=== PATIENT | female | born 1960 | race Two or more races ===

== ENCOUNTER 2024-08-17 19:54 | Inpatient (IN) | payer MEDICAID, OTHER ==
[~2024-08-17] VITALS: Ht 165.1 cm; Wt 70.0 kg
[2024-08-17 20:27] LABS: Basophils # (auto) 0 10 ^3/uL (0-0.2); Basophils % (auto) 0.8 % (0.0-2.0); Eosinophils # (auto) 0.2 10 ^3/uL (0-0.8); Eosinophils % (auto) 4.3 % (0.0-7.0); Hematocrit 35.2 % (36.0-46.0); Hemoglobin 11.9 g/dL (12.2-16.2); Lymphocytes % (auto) 35.6 % (10.0-50.0); Mean Corpuscular Hemoglobin 29.2 pg (28.0-32.0); Mean Corpuscular Hgb Conc. 33.9 g/dL (32.0-36.0); Mean Corpuscular Volume 86.1 fL (80.0-100.0); Monocytes # (auto) 0.5 10 ^3/uL (0-1.3); Monocytes % (auto) 9.6 % (0.0-12.0); Neutrophils # (auto) 2.8 10 ^3/uL (1.6-8.6); Neutrophils % (auto) 49.7 % (37.0-80.0); Nucleated Red Blood Cells % 0.1 %; Platelet Count (auto) 209 10^3/uL (140-450); Red Blood Cells 4.08 10^6/uL (4.0-5.20); Red Cell Distribution Width 16.3 % (11.8-14.3); White Blood Cell 5.6 10^3/uL (4.4-10.8)
[2024-08-17 20:42] LABS: Alanine Aminotransferase 10 U/L (7-40); Albumin 4.7 g/dL (3.2-4.8); Alkaline Phosphatase 102 U/L (46-116); Anion Gap 8 (5-15); Aspartate Aminotransferase 18 U/L (<34); BUN/Creatinine Ratio 17.1 (10.0-20.0); Bilirubin, Total 0.5 mg/dL (0.2-1.0); Blood Urea Nitrogen 19 mg/dL (9-23); Carbon Dioxide 28 mmol/L (20-31); Chloride 105 mmol/L (98-107); Potassium 4.7 mmol/L (3.5-5.1); Sodium 141 mmol/L (136-145); Total Protein 7.8 g/dL (5.7-8.2)
[2024-08-17 20:45] LABS: Calcium 10.5 mg/dL (8.7-10.4); Glucose 138 mg/dL (74-106)
--- NOTE | 2024-08-17 21:08 | DVH ---
CHEST RADIOGRAPH Indication: Chest pain Technique: Single frontal view of the chest was obtained Comparison: None FINDINGS: Lines and Tubes: None Lungs: No focal consolidation. Pleura: No effusion. No pneumothorax. Cardiomediastinal contours: Unremarkable Bones: No acute osseous abnormality. IMPRESSION: 1. No acute cardiopulmonary disease.
[2024-08-17 23:25] LABS: Urine Bacteria FEW /hpf (None Seen); Urine Blood Negative /uL (Negative); Urine Clarity Clear (Clear); Urine Color Colorless (Yellow); Urine Protein, UAD TRACE (Negative); Urine Specific Gravity 1.004 (1.001-1.035); Urine Squamous Epithelial Cell None Seen /hpf (<5); Urine Urobilinogen Normal (Negative); Urine WBC 9 /HPF (0-5); Urine pH 6.5 (5.0-9.0)
--- NOTE | 2024-08-17 23:41 | ED.PDOC ---
HPI Comments This patient is a 64-year-old female who arrives the ED today from urgent care due to concerns of palpitations that were noted in the neck due to blood pressure concerns earlier. Patient's blood pressure had spiked and she went to urgent care for assistance. Due to the palpitation response with the patient was experiencing, they advised her to ED for evaluation. Patient was hypertensive on arrival. Blood pressure 154/89 at arrival. Chief Complaint: High Blood Pressure Time Seen by MD: 19:59 Reviewed Notes: Nurses Notes Allergies: Coded Allergies: No Known Drug Allergy (Verified Allergy, Unknown, 08/17/24) Information Source: Patient Mode of Arrival: Ambulatory Severity: Moderate Timing: Hours Duration: Since onset Prehospital treatment: None Location: Substernal Radiation: Other (Left-sided neck) Quality: Sharp, Tightness Onset: At Rest Cardiac Risk Factors: HTN Associated Signs and Symptoms: Palpitations Past Medical History PAST MEDICAL HISTORY: HTN Surgical History: Denies all surgeries HIDE DROPPER History: No Pertinent HIDE DROPPER History Family History Family History: Reviewed,noncontributory to illness, No family hx of Cancer, No family hx of DM, No family hx of Heart cholo, No family hx of HTN, No family hx ofKidney cholo, No family hx of Liver cholo, No family hx of Lung cholo, No family hx of Stroke Social History Smoker: Non-Smoker Alcohol: Denies ETOH Use Drugs: Denies Drug Use Lives In: Home Constitutional: denies: chills, diaphoresis, fatigue, fever, malaise, sweats, weakness, others EENTM: denies: blurred vision, double vision, ear bleeding, ear discharge, ear drainage, ear pain, ear ringing, eye pain, eye redness, hearing loss, mouth pain, mouth swelling, nasal discharge, nose bleeding, nose congestion, nose pain, photophobia, tearing, throat pain, throat swelling, voice changes, others Respiratory: denies: cough, hemoptysis, orthopnea, SOB at rest, shortness of breath, SOB with excertion, stridor, wheezing, others Cardiovascular: reports: palpitations (Appreciated in the left-sided neck); denies: chest pain, dizzy spells, diaphoresis, Dyspnea on exertion, edema, irreg ular heart beat, left arm pain, lightheadedness, PND, syncope, others Gastrointestinal: denies: abdomen distended, abdominal pain, blood streaked bowels, constipated, diarrhea, dysphagia, difficulty swallowing, hematemesis, melena, nausea, poor appetite, poor fluid intake, rectal bleeding, rectal pain, vomiting, others Genitourinary: denies: abnormal vagina bleeding, burning, dyspareunia, dysuria, flank pain, frequency, hematuria, incontinence, pain, , vagina discharge, urgency, others Neurological: denies: dizziness, fainting, headache, left sided numbness, left sided weakness, numbness, paresthesia, pre-existing deficit, right sided numbness, right sided weakness, seizure, speech problems, tingling, tremors, weakness, others Musculoskeletal: denies: back pain, gout, joint pain, joint swelling, muscle pain, muscle stiffness, neck pain, others Integumetry: denies: bruises, change in color, change in hair/nails, dryness, laceration, lesions, lumps, rash, wounds, others Allergic/Immunocompromised: denies: Difficulty Healing, Frequent Infections, Hives, Itching, others Hematologic/Lymphatic: denies: anemia, blood clots, easy bleeding, easy bruising, swollen glands, others Endocrine: denies: excessive hunger, excessive sweating, excessive thirst, excessive urination, flushing, intolerance to cold, intolerance to heat, unexplained weight gain, unexplained weight loss, others Psychiatric: denies: anxiety, bipolar disorder, depression, hopeless, panic disorder, schizophrenia, sleepless, suicidal, others Physical Exam General Appearance: No Apparent Distress (At time of evaluation, patient states her palpitation sensation in her neck had diminished markedly.), Normal HEENT: Normal ENT Inspection, Pharynx Normal, TMs Normal Neck: Other (No definitive bruit noted on bilateral carotid evaluation.) Respiratory: Chest Non-Tender, Lungs Clear, No Accessory Muscle Use, No Respiratory Distress, Normal Breath Sounds Cardiovascular: No Edema, No JVD, No Murmur, No Gallop, Normal Peripheral Pulses, Regular Rate/Rhythm Breast Exam: Deferred Gastrointestinal: No Organomegaly, Non Tender, No Pulsatile Mass, Normal Bowel Sounds, Soft Genitalia: Deferred Pelvic: Deferred Rectal: Deferred Extremities: No calf tenderness, Normal capillary refill, Normal inspection, Normal range of motion, Non-tender, No pedal edema Neurologic: Alert, No Motor Deficits, Normal Affect, Normal Mood, No Sensory Deficits Cerebellar Function: Normal Reflexes: Normal Skin: Dry, Normal Color, Warm Lymphatic: No Adenopathy Was a procedure done? Was a procedure done?: No CP Differential Dx Differential Diagnosis: A-fib, A-Flutter, Anxiety / Panic Attack, Atrial Dysrhythmia, AV Block 1st Degree, AV Block 2nd Degree, TX Differential Diagnosis: HTN Essential, Medical NonCompliance X-Ray, Labs, Meds, VS Vital Signs Date Time Temp Pulse Resp B/P (MAP) Pulse Ox O2 Delivery O2 Flow Rate FiO2 08/17/24 22:38 98.0 64 17 188/63 (104) 98 98.0 08/17/24 21:03 61 08/17/24 20:24 98.5 67 20 154/89 (110) 98 98.5 Lab Test 08/17/24 21:23 08/17/24 21:03 08/17/24 20:10 Range/Units Troponin I High Sensitivity 4 5 </=34 ng/L Urine Color Colorless Yellow Urine Clarity Clear Clear Urine pH 6.5 5.0-9.0 Urine Specific [place] 1.004 1.001-1.035 Urine Protein Trace H Negative Urine Ketones Negative Negative Urine Blood Negative Negative /uL Urine Nitrite Negative Negative Urine Bilirubin Negative Negative Urine Urobilinogen Normal Negative mg/dL Urine Leukocyte Esterase Trace Negative /uL Urine RBC 1 0 - 4 /hpf Urine Microscopic WBC 9 H 0-5 /HPF Urine Squamous Epithelial Cells None seen <5 /hpf Urine Bacteria Few H None Seen /hpf Urine Glucose Normal Normal mg/dL White Blood Count 5.6 4.4-10.8 10^3/uL Red Blood Count 4.08 4.0-5.20 10^6/uL Hemoglobin 11.9 L 12.2-16.2 g/dL Hematocrit 35.2 L 36.0-46.0 % Mean Corpuscular Volume 86.1 80.0-100.0 fL Mean Corpuscular Hemoglobin 29.2 28.0-32.0 pg Mean Corpuscular Hemoglobin Concent 33.9 32.0-36.0 g/dL Red Cell Distribution Width 16.3 H 11.8-14.3 % Platelet Count 209 140-450 10^3/uL Mean Platelet Volume 9.0 6.9-10.8 fL Neutrophils (%) (Auto) 49.7 37.0-80.0 % Lymphocytes (%) (Auto) 35.6 10.0-50.0 % Monocytes (%) (Auto) 9.6 0.0-12.0 % Eosinophils (%) (Auto) 4.3 0.0-7.0 % Basophils (%) (Auto) 0.8 0.0-2.0 % Neutrophils # (Auto) 2.8 1.6-8.6 10 ^3/uL Lymphocytes # (Auto) 2.0 0.4-5.4 10 ^3/uL Monocytes # (Auto) 0.5 0-1.3 10 ^3/uL Eosinophils # (Auto) 0.2 0-0.8 10 ^3/uL Basophils # (Auto) 0 0-0.2 10 ^3/uL Nucleated Red Blood Cells 0.1 % D-Dimer, Quantitative 0.20 0.0-0.49 mg/L FEU Sodium Level 141 136-145 mmol/L Potassium Level 4.7 3.5-5.1 mmol/L Chloride Level 105 98-107 mmol/L Carbon Dioxide Level 28 20-31 mmol/L Anion Gap 8 5-15 Blood Urea Nitrogen 19 9-23 mg/dL Creatinine 1.11 H 0.550-1.02 mg/dL Glomerular Filtration Rate Calc 55 >90 mL/min BUN/Creatinine Ratio 17.1 10.0-20.0 Serum Glucose 138 H 74-106 mg/dL Calcium Level 10.5 H 8.7-10.4 mg/dL Total Bilirubin 0.5 0.2-1.0 mg/dL Aspartate Amino Transferase (AST) 18 <34 U/L Alanine Aminotransferase (ALT) 10 7-40 U/L Alkaline Phosphatase 102 46-116 U/L B-Type Natriuretic Peptide 89.81 0-100 pg/mL Total Protein 7.8 5.7-8.2 g/dL Albumin 4.7 3.2-4.8 g/dL X-Ray, Labs, Meds, VS Comment All studies performed the ED were evaluated by me personally. Serum studies were unremarkable for any systemic concerns including unremarkable cardiac markers. Urinalysis confirmed a mild urinary tract infection, but EKG revealed a sinus rhythm with a rate of 64. Left bundle-branch block was appreciated with a baseline wander in leads V1 and V3. PA interval 154 and QT interval of 419. Patient states she has been has been diagnosed with a left bundle-branch block concerns before. Patient will be admitted for cardiac evaluation tomorrow as well as management of her mild urinary tract infection and blood pressure concerns. Time of 1ST Reevaluation: 23:39 Reevaluation 1ST: Improved Consultation: PCP, Cardiology Patient Education/Counseling: Diagnosis, Treatment Family Education/Counseling: Diagnosis, Treatment SEPSIS Sepsis Screen Date sepsis recognized/suspect: Aug 17, 2024 Time Sepsis recognized/suspect: 1999 Recent Procedure: No On Antibiotic Therapy: No Respiratory Rate >20: No Heart Rate >90: No Temp<36 C (96.8 F) or >38.3 C: No SBP <90 or MAP <65 mmHG: No New Acute Mental Status Change: No Is the patient on CPAP, BIPAP,: No Physician Orders Electrocardigram (08/17/24 19:56) Electrocardigram (08/17/24 20:56) Electrocardigram (08/17/24 22:56) Chest Portable (08/17/24 20:16) Heplock Iv (08/17/24 20:16) Vital Signs Date Time Temp Pulse Resp B/P (MAP) Pulse Ox O2 Delivery O2 Flow Rate FiO2 08/17/24 22:38 98.0 64 17 188/63 (104) 98 98.0 08/17/24 21:03 61 08/17/24 20:24 98.5 67 20 154/89 (110) 98 98.5 Laboratory Tests Test 08/17/24 20:10 White Blood Count 5.6 10^3/uL (4.4-10.8) Departure 1 Departure Time of Disposition: 23:40 Impression: Primary Impression: Acute coronary syndromes Additional Impressions: Left bundle branch block Urinary tract infection Disposition: ADMITTED INPATIENT Condition: Stable Discharged With: Self Critical Care Note Critical Care Time?: No Stability Stability form required: No Heart Score Heart Score: Heart Score Response (Comments) Value History Slightly Suspicious 0 EKG Repolarization Disturb 1 Age >65 2 Risk Factors 1 or 2 risk factors 1 Troponin Normal limit 0 Total 4 ALAYNA MCKEON PAC Aug 17, 2024 23:41
[2024-08-18] MEDS ORDERED: ONDANSETRON HCL 4 MG/2 ML VIAL IV PRN (00:15)
[2024-08-18] MEDS ORDERED: ACETAMINOPHEN 325 MG TAB PO PRN (00:15)
[2024-08-18] MEDS ORDERED: DEXTROSE (50%) 50ML SYRG IV PRN (00:15)
[2024-08-18] MEDS ORDERED: DOCUSATE SOD 100 MG CAP PO PRN (00:15)
--- NOTE | 2024-08-18 01:23 | ECG ---
[facility] Test Date: 2024-08-17 Test Time: 21:03:50 Pat Name: LUIS F JONES Department: ED Room: 0293T Gender: F Manager Of Data: JEANNETTE : 1960 Requested By: LUDA FRIEDMAN Order Number: [id number] Reading MD: Robbie Murrieta Measurements Intervals [place] Rate: 61 P: 62 SC: 141 QRS: -25 QRSD: 141 T: 169 QT: 418 QTc: 421 Interpretive Statements Sinus rhythm Left bundle branch block Baseline wander in lead(s) V2 Electronically Signed On 08-18-2024 20:14:10 PDT by Robbie Murrieta Please click the below link to view image of tracing.
--- NOTE | 2024-08-18 02:17 | DVHHP2 ---
History of Present Illness Reason for Visit: Hypertensive emergency History of Present Illness The patient is a 64-year-old female with past medical history of hypertension and diabetes mellitus who presented to [facility] ED with complaint of elevated blood pressure. Patient reports that she went to the urgent care due to palpitations concerns and was found to have elevated blood pressure. Patient was advised to come to the ED for evaluation. Patient was seen and evaluated in the ED, laboratory data shows WBC 5.6, platelets 209, sodium 141, potassium 4.7, BUN 19, creatinine 1.11, glucose 138, calcium 10.5, BNP 89.81, troponin 4, blood pressure 188/63 trending down to 164/63, heart rate 64, temperature 98.0 F, O2 saturation 98% on room air. Chest x-ray show no acute cardiopulmonary disease. Please see medication orders section in the computer. On my assessment, patient denied chest pain, no headache, no dizziness, no shortness of breaths, no nausea, no vomiting, no fever, no chills. Patient was admitted for further evaluation and medical management. Past Medical History HTN, DM Past Surgical History Denies all surgeries Family History Reviewed, noncontributory to the management of this case. Past Social History The patient lives at home, denies smoking, alcohol or illicit drugs abuse. Review of Systems Constitutional: Yes: Weakness; No: Fever, Chills, Sweats, Malaise, Other Eyes: No: Pain, Vision change, Conjunctivae inflammation, Eyelid inflammation, Other, Redness ENT: No: Ear pain, Ear discharge, Nose pain, Nose discharge, Nose congestion, Mouth pain, Mouth swelling, Throat pain, Throat swelling, Other Respiratory: No: Cough, Dry, Shortness of breath, SOB with excertion, Wheezing, Hemoptysis, Pleuritic Pain, Sputum, Wheezing, Other Cardiovascular: Palpitations, Other (Hypertension); No: Chest Pain, Orthopnea, Paroxysmal Noc. Dyspnea, Edema, Lt Headedness Gastrointestinal: No: Nausea, Vomiting, Abdominal Pain, Diarrhea, Constipation, Melena, Hematochezia, Other Genitourinary: No Dysuria, No Frequency, No Incontinence, No Hematuria, No Retention, No Other Musculoskeletal: No: other, neck pain, shoulder pain, arm pain, back pain, hand pain, leg pain, foot pain Skin: No: Rash, Lesions, Jaundice, Bruising, Other Neurological: No: Weakness, Numbness, Incoordination, Change in speech, Confusion, Seizures, Other Allergies: Coded Allergies: No Known Drug Allergy (Verified Allergy, Unknown, 08/17/24) Medications Current Medications Medications Dose Ordered Sig/Jackie Route Start Time Stop Time Status Last Admin Dose Admin Aspirin 81 mg DAILY PO 08/18/24 10:00 Atorvastatin Calcium 40 mg HS PO 08/18/24 22:00 Metoprolol Tartrate 25 mg BID PO 08/18/24 10:00 Hydralazine HCl 10 mg Q6HP PRN IV 08/18/24 00:15 Diagnostic Test (Pha) 1 strip ACHS 08/18/24 07:00 Insulin Human Regular HS SC 08/18/24 22:00 Insulin Human Regular AC SC 08/18/24 07:00 Dextrose 50 ml UD PRN IV 08/18/24 00:15 Sodium Chloride 10 ml Q8HR IV 08/18/24 06:00 Acetaminophen/ Hydrocodone Bitart 1 tab Q4HP PRN PO 08/18/24 00:15 Ondansetron HCl 4 mg Q4HP PRN IV 08/18/24 00:15 Docusate Sodium 100 mg BIDPRN PRN PO 08/18/24 00:15 Acetaminophen 650 mg Q6HP PRN PO 08/18/24 00:15 Amlodipine Besylate 5 mg DAILY PO 08/18/24 10:00 UNV Exam Vital Signs Vital Signs Date Time Temp Pulse Resp B/P (MAP) Pulse Ox O2 Delivery O2 Flow Rate FiO2 08/17/24 22:38 98.0 64 17 188/63 (104) 98 98.0 General Appearance: Alert, Oriented X3, Cooperative, No acute distress HEENT: Atraumatic, PERRLA, EOMI, Mucous membr. moist/pink Respiratory: Clear to auscultation, Normal air movement Cardiovascular: Regular rate, Normal S1, Normal S2, No murmurs Abdominal: Normal bowel sounds, Soft, No tenderness, No hepatospenomegaly, No masses Extremities: No clubbing, No cyanosis, No edema, Normal pulses, No tenderness /swelling Skin: No rashes, No breakdown, No significant lesion Neuro: Normal speech, Normal tone, Sensation intact, Cranial nerves 3-12 NL, Reflexes 2+, Other (Generalized weakness) Psych/Mental Status: Mental status NL, Mood NL Labs/Xrays Labs Test 08/17/24 21:23 08/17/24 21:03 08/17/24 20:10 Range/Units Troponin I High Sensitivity 4 </=34 ng/L Urine Color Colorless Yellow Urine Clarity Clear Clear Urine pH 6.5 5.0-9.0 Urine Specific [place] 1.004 1.001-1.035 Urine Protein Trace H Negative Urine Ketones Negative Negative Urine Blood Negative Negative /uL Urine Nitrite Negative Negative Urine Bilirubin Negative Negative Urine Urobilinogen Normal Negative mg/dL Urine Leukocyte Esterase Trace Negative /uL Urine RBC 1 0 - 4 /hpf Urine Microscopic WBC 9 H 0-5 /HPF Urine Squamous Epithelial Cells None seen <5 /hpf Urine Bacteria Few H None Seen /hpf Urine Glucose Normal Normal mg/dL White Blood Count 5.6 4.4-10.8 10^3/uL Red Blood Count 4.08 4.0-5.20 10^6/uL Hemoglobin 11.9 L 12.2-16.2 g/dL Hematocrit 35.2 L 36.0-46.0 % Mean Corpuscular Volume 86.1 80.0-100.0 fL Mean Corpuscular Hemoglobin 29.2 28.0-32.0 pg Mean Corpuscular Hemoglobin Concent 33.9 32.0-36.0 g/dL Red Cell Distribution Width 16.3 H 11.8-14.3 % Platelet Count 209 140-450 10^3/uL Mean Platelet Volume 9.0 6.9-10.8 fL Neutrophils (%) (Auto) 49.7 37.0-80.0 % Lymphocytes (%) (Auto) 35.6 10.0-50.0 % Monocytes (%) (Auto) 9.6 0.0-12.0 % Eosinophils (%) (Auto) 4.3 0.0-7.0 % Basophils (%) (Auto) 0.8 0.0-2.0 % Neutrophils # (Auto) 2.8 1.6-8.6 10 ^3/uL Lymphocytes # (Auto) 2.0 0.4-5.4 10 ^3/uL Monocytes # (Auto) 0.5 0-1.3 10 ^3/uL Eosinophils # (Auto) 0.2 0-0.8 10 ^3/uL Basophils # (Auto) 0 0-0.2 10 ^3/uL Nucleated Red Blood Cells 0.1 % D-Dimer, Quantitative 0.20 0.0-0.49 mg/L FEU Sodium Level 141 136-145 mmol/L Potassium Level 4.7 3.5-5.1 mmol/L Chloride Level 105 98-107 mmol/L Carbon Dioxide Level 28 20-31 mmol/L Anion Gap 8 5-15 Blood Urea Nitrogen 19 9-23 mg/dL Creatinine 1.11 H 0.550-1.02 mg/dL Glomerular Filtration Rate Calc 55 >90 mL/min BUN/Creatinine Ratio 17.1 10.0-20.0 Serum Glucose 138 H 74-106 mg/dL Calcium Level 10.5 H 8.7-10.4 mg/dL Total Bilirubin 0.5 0.2-1.0 mg/dL Aspartate Amino Transferase (AST) 18 <34 U/L Alanine Aminotransferase (ALT) 10 7-40 U/L Alkaline Phosphatase 102 46-116 U/L B-Type Natriuretic Peptide 89.81 0-100 pg/mL Total Protein 7.8 5.7-8.2 g/dL Albumin 4.7 3.2-4.8 g/dL PATIENT: LUIS F JONES ACCT: [id number] UNIT: [id number] : 1960 LOC: ER ROOM / BED: / AGE / SEX: 64 / F ADM STATUS: REG ER SERVICE 15 ORDERING PHYSICIAN: ALAYNA MCKEON PAC PROCEDURE(s): CXRP - CHEST PORTABLE REASON: Chest pain ORDER NUMBER(s): [id number], ACCESSION NUMBER(s): [id number] CHEST RADIOGRAPH Indication: Chest pain Technique: Single frontal view of the chest was obtained Comparison: None FINDINGS: Lines and Tubes: None Lungs: No focal consolidation. Pleura: No effusion. No pneumothorax. Cardiomediastinal contours: Unremarkable Bones: No acute osseous abnormality. IMPRESSION: 1. No acute cardiopulmonary disease. Assessment/Plan Assessment/Plan Acute coronary syndromes Left bundle branch block Hypertensive urgency Generalized weakness Plan 1. Admit to telemetry unit 2. Breathing treatment 3. Pain control management 4. Management of fluids and electrolytes 5. Consultation for hospitalist 6. Diagnostic tests chest x-ray 7. DVT prophylaxis--on SCDs 8. Repeat labs CBC, CMP in a.m. 9. Continue with current medical management 10. Treatment plan discussed with patient and RN. Patient verbalized understa nding. Plan discussed with: Patient, Other (RN) My Orders Orders - AMBER RIOS DNP Procedure Category Date Status Time Complete Blood Count LAB 08/18/24 Logged 04:00 Comprehensive LAB 08/18/24 Logged Metabolic Panel 04:00 Aspirin Tablet PHA 08/18/24 In Process 10:00 Atorvastatin (Lipitor) PHA 08/18/24 In Process 22:00 Metoprolol Tartrate PHA 08/18/24 In Process Tablet (Lopressor Ta 10:00 Hydralazine Injection PHA 08/18/24 In Process (Apresoline Inject 00:15 Consistent DIET 08/18/24 Transmitted Carb(Ccho)Diabetes Breakfast Glucose Blood PHA 08/18/24 In Process (Accu-Chek Comfort 07:00 Insulin R (Human) PHA 08/18/24 In Process (Insulin R) 22:00 Insulin R (Human) PHA 08/18/24 In Process (Insulin R) 07:00 Dextrose 50% Syringe PHA 08/18/24 In Process 00:15 Allergies ADRIANNE 08/18/24 In Process 00:06 Code Status CODE 08/18/24 Transmitted 00:06 Sodium Chloride Lock PHA 08/18/24 In Process (Saline Lock Ns) 06:00 Oxygen Per Hour RT 08/18/24 Transmitted 00:06 Hydrocodone-Acet PHA 08/18/24 In Process 5/325mg Tab ([place] 00:15 Ondansetron Hcl PHA 08/18/24 In Process (Zofran) 00:15 Docusate Sodium PHA 08/18/24 In Process Capsule (Colace 00:15 Complete Blood Count LAB 08/19/24 Verified 04:00 Comprehensive LAB 08/19/24 Verified Metabolic Panel 04:00 Condition: Serious ADRIANNE 08/18/24 In Process 00:06 Acetaminophen Tablet PHA 08/18/24 In Process (Tylenol Tablet) 00:15 Bedrest With Bathroom ADRIANNE 08/18/24 In Process Privileg 00:06 Sequential ADRIANNE 08/18/24 In Process Compression Device Amlodipine Tablet PHA 08/18/24 Logged (Norvasc Tablet) 02:15 Amlodipine Tablet PHA 08/18/24 Logged (Norvasc Tablet) 10:00 Admit ADMIT 08/18/24 Verified 02:16 Nitroglycerin PHA 08/18/24 Verified Sublingual (Ntrostat 02:30 Morphine Sulfate [facility] 08/18/24 Verified Injection 02:30 Stat Ekg For Chest [facility] 08/18/24 Verified Pain 02:16 Notify Md Of Changes [facility] 08/18/24 Verified From Base 02:16 Manufacturing Laborer For [facility] 08/18/24 Verified 24 Hours 02:16 Emergency Dysrhythmia [facility] 08/18/24 Verified Protocol 02:16 Rhythm Strips Once [facility] 08/18/24 Verified Every Shift 02:16 Oxygen By Nasal 08/18/24 Verified Cannula 02:16 Problem List: (1) Acute coronary syndromes (2) Left bundle branch block (3) Hypertensive urgency (4) Generalized weakness Date of Service: Aug 18, 2024 Billing Provider: AMBER RIOS DNP Common Visit Codes: [id number] INP/OBS CARE (HIGH) AMBER RIOS DNP Aug 18, 2024 02:17
[2024-08-18] MEDS: cloNIDine HCL 0.1 MG TAB PO ONE (02:28)
[2024-08-18] MEDS: cefTRIAXone 1GM/50ML D5W 50 ML IV ONE (02:29)
[2024-08-18] MEDS ORDERED: NITROGLYCERIN 0.4 MG SL TAB SL PRN (02:30)
[2024-08-18] MEDS ORDERED: MORPHINE SULFATE INJ 2 MG/ml SYRG IV PRN (02:30)
[2024-08-18 02:35] VITALS: O2SAT 98
[2024-08-18] MEDS: amLODIPine BESYLATE 5 MG TAB PO ONE (03:04)
[2024-08-18 05:48] LABS: Basophils # (auto) 0 10 ^3/uL (0-0.2); Basophils % (auto) 0.7 % (0.0-2.0); Eosinophils # (auto) 0.2 10 ^3/uL (0-0.8); Eosinophils % (auto) 4.4 % (0.0-7.0); Hematocrit 31.9 % (36.0-46.0); Hemoglobin 11.1 g/dL (12.2-16.2); Lymphocytes # (auto) 1.7 10 ^3/uL (0.4-5.4); Lymphocytes % (auto) 37.8 % (10.0-50.0); Mean Corpuscular Hemoglobin 29.9 pg (28.0-32.0); Mean Corpuscular Hgb Conc. 34.6 g/dL (32.0-36.0); Mean Corpuscular Volume 86.3 fL (80.0-100.0); Monocytes # (auto) 0.4 10 ^3/uL (0-1.3); Monocytes % (auto) 9.7 % (0.0-12.0); Neutrophils # (auto) 2.2 10 ^3/uL (1.6-8.6); Neutrophils % (auto) 47.4 % (37.0-80.0); Nucleated Red Blood Cells % 0.1 %; Platelet Count (auto) 173 10^3/uL (140-450); Red Cell Distribution Width 15.9 % (11.8-14.3); White Blood Cell 4.6 10^3/uL (4.4-10.8)
[2024-08-18] MEDS: SODIUM CHLOR 0.9% PF (SALINE LOCK) 10ML VIAL/SYR IV SCH (06:02)
[2024-08-18 06:05] LABS: Alkaline Phosphatase 87 U/L (46-116); Anion Gap 7 (5-15); Aspartate Aminotransferase 14 U/L (<34); BUN/Creatinine Ratio 19.3 (10.0-20.0); Bilirubin, Total 0.4 mg/dL (0.2-1.0); Blood Urea Nitrogen 17 mg/dL (9-23); Calcium 9.6 mg/dL (8.7-10.4); Carbon Dioxide 26 mmol/L (20-31); Potassium 4.3 mmol/L (3.5-5.1); Sodium 141 mmol/L (136-145); Total Protein 6.7 g/dL (5.7-8.2)
[2024-08-18 06:09] LABS: Alanine Aminotransferase < 9 U/L (7-40); Chloride 108 mmol/L (98-107); Glucose 146 mg/dL (74-106)
[2024-08-18] MEDS: InsuLIN REG 1unit/0.01ml Soln (100units/ml) SC SCH ×2 (07:00→21:56)
[2024-08-18] MEDS: ACCU-CHEK COMFORT CURVE STRIP VI SCH (07:04)
[2024-08-18 08:24] VITALS: PULSE 52; RESP 14; O2SAT 98
[2024-08-18] MEDS: METOPROLOL TARTRATE 25 MG TAB PO SCH ×2 (10:14→22:06)
[2024-08-18] MEDS: ASPirin 81 mg TAB PO SCH (10:14)
--- NOTE | 2024-08-18 11:06 | ECG ---
[facility] Test Date: 2024-08-17 Test Time: 20:04:45 Pat Name: LUIS F JONES Department: ER Room: 0293T Gender: F Hand Paint Mixer: JAZMYNE : 1960 Requested By: LUDA FRIEDMAN Order Number: [id number] Reading MD: Robbie Murrieta Measurements Intervals [place] Rate: 64 P: 50 MD: 154 QRS: -15 QRSD: 132 T: 169 QT: 419 QTc: 433 Interpretive Statements Sinus rhythm Left bundle branch block Baseline wander in lead(s) V1,V3 Electronically Signed On 08-18-2024 20:13:56 PDT by Robbie Murrieta Please click the below link to view image of tracing.
--- NOTE | 2024-08-18 14:34 | DVHINCON2 ---
Date Seen: Aug 18, 2024 Referring Physician Nikolay Reason for Consultation LBBB, Hypertensive urgency History of Present Illness 64-year-old female with PMH for HTN, diabetes, takotsubo cardiomyopathy 2022 EF 35%, presents to the hospital with elevated blood pressure. Patient states she is feeling pressure around her neck pounding heartbeat and found her blood pressure be significantly elevated in the 190 systolic. Patient presented to the urgent care then she was referred to come to the ED. Upon presentation patient noted to have elevated blood pressure 1 80s/63. Troponin negative. Denies chest pain, shortness of breath. EKG done review shows sinus rhythm at 6 1 beats per minute with LBBB. Cardiology consulted. Past Medical History HTN HLD Takotsubo cardiomyopathy EF 35% Diabetes Past Surgical History Coronary angiogram negative for obstructive CAD 2022 Family History Denies pertinent family cardiac history Social History Denies alcohol, tobacco, or illicit drug use Allergies: Coded Allergies: No Known Drug Allergy (Verified Allergy, Unknown, 08/17/24) Current Medications Current Medications Medications (Trade) Dose Ordered Sig/Jackie Route PRN Reason Start Time Stop Time Status Last Admin Aspirin 81 mg DAILY PO 08/18/24 10:00 08/18/24 10:14 Atorvastatin Calcium (Lipitor) 40 mg HS PO 08/18/24 22:00 Metoprolol Tartrate (Lopressor Tablet) 25 mg BID PO 08/18/24 10:00 08/18/24 10:14 Hydralazine HCl (Apresoline Injection) 10 mg Q6HP PRN IV SBP>150 08/18/24 00:15 Diagnostic Test (Pha) (Accu-Chek Comfort Curve T) 1 strip ACHS 08/18/24 07:00 08/18/24 11:28 Insulin Human Regular (InsuLIN R) HS SC 08/18/24 22:00 Insulin Human Regular (InsuLIN R) AC SC 08/18/24 07:00 08/18/24 11:28 Dextrose 50 ml UD PRN IV Blood Sugar LESS THAN 60 08/18/24 00:15 Sodium Chloride (Saline Lock Ns) 10 ml Q8HR IV 08/18/24 06:00 08/18/24 14:01 Acetaminophen/ Hydrocodone Bitart ([place] 5/325MG Tab) 1 tab Q4HP PRN PO MODERATE PAIN (4-6 PAIN SCALE) 08/18/24 00:15 Ondansetron HCl (Zofran) 4 mg Q4HP PRN IV NAUSEA / VOMITING 08/18/24 00:15 Docusate Sodium (Colace Capsule) 100 mg BIDPRN PRN PO FOR CONSTIPATION 08/18/24 00:15 Acetaminophen (Tylenol Tablet) 650 mg Q6HP PRN PO PAIN SCALE 1-3 OR TEMP>100.4 08/18/24 00:15 Amlodipine Besylate (Norvasc Tablet) 5 mg DAILY PO 08/19/24 10:00 Nitroglycerin (Ntrostat Sublingual) 0.4 mg Q5MINP PRN SL FOR CHEST PAIN 08/18/24 02:30 Morphine Sulfate 2 mg Q30M PRN IV FOR CHEST PAIN 08/18/24 02:30 Review of Systems Constitutional: No: Fever, Chills, Sweats, Weakness, Malaise, Other Eyes: No: Pain, Vision change, Conjunctivae inflammation, Eyelid inflammation, Other, Redness ENT: No: Ear pain, Ear discharge, Nose pain, Nose discharge, Nose congestion, Mouth pain, Mouth swelling, Throat pain, Throat swelling, Other Respiratory: No: Cough, Dry, Shortness of breath, SOB with exertion, Wheezing, Hemoptysis, Pleuritic Pain, Sputum, Wheezing, Other Cardiovascular: ; No: Chest Pain Palpitations, Orthopnea, Paroxysmal Noc. Dyspnea, Edema, Lt Headedness, Other Gastrointestinal: No: Nausea, Vomiting, Abdominal Pain, Diarrhea, Constipation, Melena, Hematochezia, Other Genitourinary: No Dysuria, No Frequency, No Incontinence, No Hematuria, No Retention, No Other Musculoskeletal: neck pain; No: other, shoulder pain, arm pain, back pain, hand pain, leg pain, foot pain Skin: No: Rash, Lesions, Jaundice, Bruising, Other Neurological: Other (Dizziness, headache.); No: Weakness, Numbness, Incoordination, Change in speech, Confusion, Seizures Vital Signs Vital Signs Date Time Temp Pulse Resp B/P (MAP) Pulse Ox O2 Delivery O2 Flow Rate FiO2 08/18/24 12:01 50 10 128/45 (72) 94 08/18/24 08:24 Room Air* 0 21 08/18/24 08:23 97.5 97.5 Physical Exam General appearance: Patient is well-developed, well-nourished, in no acute distress. HEENT: Exam shows: Normocephalic, atraumatic, PERRLA, EOMI Neck: Supple, no bruits Chest: Equal chest excursion bilaterally. Breath sounds normal-no rales or wheezes. Heart: Rhythm: Regular rate; bradycardia; no murmur or gallop Abdomen: Exam shows: Soft, nontender, nondistended Musculoskeletal: No clubbing, no cyanosis, no lower extremity edema Dermatology: Skin warm, moist. Neurological: Exam shows: Alert and oriented x4, normal speech Available prior records, labs, EKG, rhythm strips reviewed and interpreted Labs/Diagnostic Data Labs Test 08/18/24 11:24 08/18/24 05:05 08/17/24 21:23 08/17/24 21:03 Range/Units POC Glucose 187 H 70-106 mg/dl White Blood Count 4.6 4.4-10.8 10^3/uL Red Blood Count 3.70 L 4.0-5.20 10^6/uL Hemoglobin 11.1 L 12.2-16.2 g/dL Hematocrit 31.9 L 36.0-46.0 % Mean Corpuscular Volume 86.3 80.0-100.0 fL Mean Corpuscular Hemoglobin 29.9 28.0-32.0 pg Mean Corpuscular Hemoglobin Concent 34.6 32.0-36.0 g/dL Red Cell Distribution Width 15.9 H 11.8-14.3 % Platelet Count 173 140-450 10^3/uL Mean Platelet Volume 9.2 6.9-10.8 fL Neutrophils (%) (Auto) 47.4 37.0-80.0 % Lymphocytes (%) (Auto) 37.8 10.0-50.0 % Monocytes (%) (Auto) 9.7 0.0-12.0 % Eosinophils (%) (Auto) 4.4 0.0-7.0 % Basophils (%) (Auto) 0.7 0.0-2.0 % Neutrophils # (Auto) 2.2 1.6-8.6 10 ^3/uL Lymphocytes # (Auto) 1.7 0.4-5.4 10 ^3/uL Monocytes # (Auto) 0.4 0-1.3 10 ^3/uL Eosinophils # (Auto) 0.2 0-0.8 10 ^3/uL Basophils # (Auto) 0 0-0.2 10 ^3/uL Nucleated Red Blood Cells 0.1 % Sodium Level 141 136-145 mmol/L Potassium Level 4.3 3.5-5.1 mmol/L Chloride Level 108 H 98-107 mmol/L Carbon Dioxide Level 26 20-31 mmol/L Anion Gap 7 5-15 Blood Urea Nitrogen 17 9-23 mg/dL Creatinine 0.88 0.550-1.02 mg/dL Glomerular Filtration Rate Calc 72 >90 mL/min BUN/Creatinine Ratio 19.3 10.0-20.0 Serum Glucose 146 H 74-106 mg/dL Calcium Level 9.6 8.7-10.4 mg/dL Total Bilirubin 0.4 0.2-1.0 mg/dL Aspartate Amino Transferase (AST) 14 <34 U/L Alanine Aminotransferase (ALT) < 9 7-40 U/L Alkaline Phosphatase 87 46-116 U/L Total Protein 6.7 5.7-8.2 g/dL Albumin 4.0 3.2-4.8 g/dL Troponin I High Sensitivity 4 </=34 ng/L Urine Color Colorless Yellow Urine Clarity Clear Clear Urine pH 6.5 5.0-9.0 Urine Specific [place] 1.004 1.001-1.035 Urine Protein Trace H Negative Urine Ketones Negative Negative Urine Blood Negative Negative /uL Urine Nitrite Negative Negative Urine Bilirubin Negative Negative Urine Urobilinogen Normal Negative mg/dL Urine Leukocyte Esterase Trace Negative /uL Urine RBC 1 0 - 4 /hpf Urine Microscopic WBC 9 H 0-5 /HPF Urine Squamous Epithelial Cells None seen <5 /hpf Urine Bacteria Few H None Seen /hpf Urine Glucose Normal Normal mg/dL Test 08/17/24 20:10 Range/Units D-Dimer, Quantitative 0.20 0.0-0.49 mg/L FEU B-Type Natriuretic Peptide 89.81 0-100 pg/mL Assessment * Hypertensive urgency - denies chest pain. Troponin negative. Blood pressure better controlled. metoprolol tartrate decreased to 12.5 mg p.o. twice daily due to bradycardia, continue on valsartan increased to 80 mg p.o. daily. Amlodipine discontinued as patient states had significant bilateral lower extremity edema on calcium channel blockers and was taken off prior. * Left bundle branch block - previously known on EKG reviewed from 2022. Continue telemetry monitoring. * HX Takotsubo cardiomyopathy - continue GDMT as tolerated, metoprolol decreased to 12.5 mg p.o. twice daily due to bradycardia. Continue valsartan increased to 80 mg p.o. daily. Check echo. * Diabetes - management per primary team. * Sinus Bradycardia - metoprolol decreased to 12.5 mg p.o. twice daily. Continu e telemetry monitoring. Case Discussed with Dr Wilkerson. Continue GDMT due for previously diagnosed Takotsubo Cardiomyopathy in 2022. Negative coronary angiogram at that time. Previously noted LBBB at that time as well. Check ECHO this admission. Metoprol ol decreased to 12.5 mg twice daily due to bradycardia. Valsartan increased to 80 mg daily. Amlodipine discontinued due to previous significant BLE edema on CCB. Continue to titrate Valsartan as tolerated may add hydralazine PO if needed. Critical care, time spent: 45 minutes This medical document was created using an electronic medical record system with voice recognition software and computerized dictation system. Although this document has been carefully reviewed, there might still be some phonetic and typographical errors. Occasional wrong-word or ``sound-alike substitutions may have occurred due to the inherent limitations of voice recognition software. These areas are purely typographical due to imperfections of the software programs and do not reflect any compromise in the patient's medical care. Please read the chart carefully and recognize, using context, where these substitutions have occurred. Thank you for allowing me to participate in the management of this patient. The treatment plan was discussed with and agreed upon by patient/family including requesting consultants and ordering of imaging/procedures. Plan discussed with: Patient NYHA Physical activity limitations: Class2(Slight)fatigue,sob Date of Service: Aug 18, 2024 Billing Provider: ARCADIO BURK Cardiology Common Codes: [id number] INP/OBS CARE (High), [id number] CARE 30-74 MIN ARCADIO BURK Aug 18, 2024 14:34
--- NOTE | 2024-08-18 16:18 | DVHPN2 ---
Subjective I am assuming the care of the patient from today onwards, patient he is admitted for hypertensive urgency. Patient currently denies any chest pain. Changes from previous H/P or p: No Changes Eyes: No Pain, No Vision change, No Conjunctivae inflammation, No Eyelid inflammation, No Other, No Redness ENT: No Ear pain, No Ear discharge, No Nose pain, No Nose discharge, No Nose congestion, No Mouth pain, No Mouth swelling, No Throat pain, No Throat swelling, No Other Cardiovascular: No Chest Pain; Palpitations; No Orthopnea, No Paroxysmal Noc. Dyspnea, No Edema, No Lt Headedness; Other (Hypertension) Respiratory: No Cough, No Dry, No Shortness of breath, No SOB with excertion, No Wheezing, No Hemoptysis, No Pleuritic Pain, No Sputum, No Other Gastrointestinal: No Nausea, No Vomiting, No Abdominal Pain, No Diarrhea, No Constipation, No Melena, No Hematochezia, No Other Genitourinary: No Dysuria, No Frequency, No Incontinence, No Hematuria, No Retention, No Other Musculoskeletal: No other, No neck pain, No shoulder pain, No arm pain, No back pain, No hand pain, No leg pain, No foot pain Skin: No Rash, No Lesions, No Jaundice, No Bruising, No Other Objective Vitals Vital Signs Date Time Temp Pulse Resp B/P (MAP) Pulse Ox O2 Delivery O2 Flow Rate FiO2 08/18/24 14:01 49 14 120/51 (74) 96 08/18/24 08:24 Room Air* 0 21 08/18/24 08:23 97.5 97.5 Intake/Output Intake and Output 08/18/24 07:00 Intake Total 50 ml Balance 50 ml Intake IV Total 50 ml Exam HEENT pupils are reactive Neck is supple CVS S1-S2 regular rate and rhythm Respiratory bilateral equal breath sounds GI positive bowel sounds Extremities no edema [employer] no motor deficit Medications Current Medications Medications Dose Ordered Sig/Jackie Route Start Time Stop Time Status Last Admin Dose Admin Aspirin 81 mg DAILY PO 08/18/24 10:00 08/18/24 10:14 81 MG Atorvastatin Calcium 40 mg HS PO 08/18/24 22:00 Hydralazine HCl 10 mg Q6HP PRN IV 08/18/24 00:15 Diagnostic Test (Pha) 1 strip ACHS 08/18/24 07:00 08/18/24 11:28 1 STRIP Insulin Human Regular HS SC 08/18/24 22:00 Insulin Human Regular AC SC 08/18/24 07:00 08/18/24 11:28 3 UNITS Dextrose 50 ml UD PRN IV 08/18/24 00:15 Sodium Chloride 10 ml Q8HR IV 08/18/24 06:00 08/18/24 14:01 10 ML Acetaminophen/ Hydrocodone Bitart 1 tab Q4HP PRN PO 08/18/24 00:15 Ondansetron HCl 4 mg Q4HP PRN IV 08/18/24 00:15 Docusate Sodium 100 mg BIDPRN PRN PO 08/18/24 00:15 Acetaminophen 650 mg Q6HP PRN PO 08/18/24 00:15 Nitroglycerin 0.4 mg Q5MINP PRN SL 08/18/24 02:30 Morphine Sulfate 2 mg Q30M PRN IV 08/18/24 02:30 Metoprolol Tartrate 12.5 mg BID PO 08/18/24 22:00 Valsartan 80 mg DAILY PO 08/19/24 10:00 Laboratory Results Laboratory Tests 08/18/24 05:05 Chemistry Test 08/17/24 20:10 08/18/24 05:05 Albumin 4.7 g/dL (3.2-4.8) 4.0 g/dL (3.2-4.8) Calcium Level 10.5 mg/dL (8.7-10.4) H 9.6 mg/dL (8.7-10.4) Total Protein 7.8 g/dL (5.7-8.2) 6.7 g/dL (5.7-8.2) Coagulation Test 08/17/24 20:10 D-Dimer, Quantitative 0.20 mg/L FEU (0.0-0.49) Cardiac Markers Test 08/17/24 20:10 B-Type Natriuretic Peptide 89.81 pg/mL (0-100) LFT Test 08/17/24 20:10 08/18/24 05:05 Alanine Aminotransferase (ALT) 10 U/L (7-40) < 9 U/L (7-40) Alkaline Phosphatase 102 U/L (46-116) 87 U/L (46-116) Aspartate Amino Transferase (AST) 18 U/L (<34) 14 U/L (<34) Total Bilirubin 0.5 mg/dL (0.2-1.0) 0.4 mg/dL (0.2-1.0) HgA1c, TSH Test 08/18/24 05:05 Thyroid Stimulating Hormone (TSH) 1.38 uIU/mL (0.55-4.78) Urinalysis Test 08/17/24 21:03 Urine Color Colorless (Yellow) Urine Clarity Clear (Clear) Urine pH 6.5 (5.0-9.0) Urine Specific [place] 1.004 (1.001-1.035) Urine Protein Trace (Negative) H Urine Ketones Negative (Negative) Urine Blood Negative /uL (Negative) Urine Nitrite Negative (Negative) Urine Bilirubin Negative (Negative) Urine Urobilinogen Normal mg/dL (Negative) Urine Leukocyte Esterase Trace /uL (Negative) Urine RBC 1 /hpf (0 - 4) Urine Microscopic WBC 9 /HPF (0-5) H Urine Squamous Epithelial Cells None seen /hpf (<5) Urine Bacteria Few /hpf (None Seen) H Urine Glucose Normal mg/dL (Normal) Assessment/Plan Assessment/Plan 64-year-old female with a known history of hypertension presented to the hospital chest pain palpitations and uncontrolled blood pressure found to have 1. Chest pain rule out acute OR 2. Hypertensive urgency 3. Abnormal EKG -resume blood pressure medication, 2D echo cardiology consultation Plan discussed with: Patient, Other My Orders Orders - MEENAKSHI WELLINGTON MD Procedure Category Date Status Time * Cardiology Consult CONS 08/18/24 Transmitted 13:03 Date of Service: Aug 18, 2024 Billing Provider: MEENAKSHI WELLINGTON MD Common Visit Codes: [id number] INP/OBS CARE(MOD) MEENAKSHI WELLINGTON MD Aug 18, 2024 16:18
--- NOTE | 2024-08-18 16:23 | DVHINCON2 ---
Date Seen: Aug 18, 2024 Referring Physician Nikolay Reason for Consultation LBBB, Hypertensive urgency History of Present Illness This is a 64-year-old female with a PMH of HTN, diabetes, takotsubo cardiomyopathy 2022 EF 35% who presented to the ED with complaints of elevated blood pressure. Patient states she is feeling pressure around her neck pounding heartbeat and found her blood pressure be significantly elevated in the 190 systolic. Patient initially went to a local urgent care then she was referred to come to the ED. Upon presentation patient noted to have elevated blood pressure 180/63. Troponin negative. Chest x-ray shows NAD. Denies chest pain, shortness of breath. EKG done review shows sinus rhythm at 61 beats per minute with LBBB. Cardiology consulted. Past Medical History HTN HLD Takotsubo cardiomyopathy EF 35% Diabetes Past Surgical History Coronary angiogram negative for obstructive CAD 2022 Allergies: Coded Allergies: No Known Drug Allergy (Verified Allergy, Unknown, 08/17/24) Current Medications Current Medications Medications (Trade) Dose Ordered Sig/Jackie Route PRN Reason Start Time Stop Time Status Last Admin Aspirin 81 mg DAILY PO 08/18/24 10:00 08/18/24 10:14 Atorvastatin Calcium (Lipitor) 40 mg HS PO 08/18/24 22:00 Metoprolol Tartrate (Lopressor Tablet) 25 mg BID PO 08/18/24 10:00 08/18/24 14:38 DC 08/18/24 10:14 Hydralazine HCl (Apresoline Injection) 10 mg Q6HP PRN IV SBP>150 08/18/24 00:15 Diagnostic Test (Pha) (Accu-Chek Comfort Curve T) 1 strip ACHS 08/18/24 07:00 08/18/24 11:28 Insulin Human Regular (InsuLIN R) HS SC 08/18/24 22:00 Insulin Human Regular (InsuLIN R) AC SC 08/18/24 07:00 08/18/24 11:28 Dextrose 50 ml UD PRN IV Blood Sugar LESS THAN 60 08/18/24 00:15 Sodium Chloride (Saline Lock Ns) 10 ml Q8HR IV 08/18/24 06:00 08/18/24 14:01 Acetaminophen/ Hydrocodone Bitart ([place] 5/325MG Tab) 1 tab Q4HP PRN PO MODERATE PAIN (4-6 PAIN SCALE) 08/18/24 00:15 Ondansetron HCl (Zofran) 4 mg Q4HP PRN IV NAUSEA / VOMITING 08/18/24 00:15 Docusate Sodium (Colace Capsule) 100 mg BIDPRN PRN PO FOR CONSTIPATION 08/18/24 00:15 Acetaminophen (Tylenol Tablet) 650 mg Q6HP PRN PO PAIN SCALE 1-3 OR TEMP>100.4 08/18/24 00:15 Amlodipine Besylate (Norvasc Tablet) 5 mg DAILY PO 08/19/24 10:00 08/18/24 14:38 DC Nitroglycerin (Ntrostat Sublingual) 0.4 mg Q5MINP PRN SL FOR CHEST PAIN 08/18/24 02:30 Morphine Sulfate 2 mg Q30M PRN IV FOR CHEST PAIN 08/18/24 02:30 Metoprolol Tartrate (Lopressor Tablet) 12.5 mg BID PO 08/18/24 22:00 UNV Valsartan (Diovan) 80 mg DAILY PO 08/19/24 10:00 UNV Review of Systems Constitutional: No: Fever, Chills, Sweats, Weakness, Malaise, Other Eyes: No: Pain, Vision change, Conjunctivae inflammation, Eyelid inflammation, Other, Redness ENT: No: Ear pain, Ear discharge, Nose pain, Nose discharge, Nose congestion, Mouth pain, Mouth swelling, Throat pain, Throat swelling, Other Respiratory: No: Cough, Dry, Shortness of breath, SOB with exertion, Wheezing, Hemoptysis, Pleuritic Pain, Sputum, Wheezing, Other Cardiovascular: ; No: Chest Pain Palpitations, Orthopnea, Paroxysmal Noc. Dyspnea, Edema, Lt Headedness, Other Gastrointestinal: No: Nausea, Vomiting, Abdominal Pain, Diarrhea, Constipation, Melena, Hematochezia, Other Genitourinary: No Dysuria, No Frequency, No Incontinence, No Hematuria, No Retention, No Other Musculoskeletal: neck pain; No: other, shoulder pain, arm pain, back pain, hand pain, leg pain, foot pain Skin: No: Rash, Lesions, Jaundice, Bruising, Other Neurological: Other (Dizziness, headache.); No: Weakness, Numbness, Incoordination, Change in speech, Confusion, Seizures Vital Signs Vital Signs Date Time Temp Pulse Resp B/P (MAP) Pulse Ox O2 Delivery O2 Flow Rate FiO2 08/18/24 12:01 50 10 128/45 (72) 94 08/18/24 08:24 Room Air* 0 21 08/18/24 08:23 97.5 97.5 Physical Exam GENERAL: Alert and oriented x 3. No acute distress. EYES: PERRL, EOMI. Anicteric. HENT: Moist mucous membranes. LUNGS: Clear to auscultation bilaterally. CARDIOVASCULAR: Regular rate; bradycardia. ABDOMEN: Soft, nontender and nondistended. EXTREMITIES: No edema. NEUROLOGIC: No focal neurological deficits. SKIN: Warm, dry. Labs/Diagnostic Data Labs Test 08/18/24 11:24 08/18/24 05:05 08/17/24 21:23 08/17/24 21:03 Range/Units POC Glucose 187 H 70-106 mg/dl White Blood Count 4.6 4.4-10.8 10^3/uL Red Blood Count 3.70 L 4.0-5.20 10^6/uL Hemoglobin 11.1 L 12.2-16.2 g/dL Hematocrit 31.9 L 36.0-46.0 % Mean Corpuscular Volume 86.3 80.0-100.0 fL Mean Corpuscular Hemoglobin 29.9 28.0-32.0 pg Mean Corpuscular Hemoglobin Concent 34.6 32.0-36.0 g/dL Red Cell Distribution Width 15.9 H 11.8-14.3 % Platelet Count 173 140-450 10^3/uL Mean Platelet Volume 9.2 6.9-10.8 fL Neutrophils (%) (Auto) 47.4 37.0-80.0 % Lymphocytes (%) (Auto) 37.8 10.0-50.0 % Monocytes (%) (Auto) 9.7 0.0-12.0 % Eosinophils (%) (Auto) 4.4 0.0-7.0 % Basophils (%) (Auto) 0.7 0.0-2.0 % Neutrophils # (Auto) 2.2 1.6-8.6 10 ^3/uL Lymphocytes # (Auto) 1.7 0.4-5.4 10 ^3/uL Monocytes # (Auto) 0.4 0-1.3 10 ^3/uL Eosinophils # (Auto) 0.2 0-0.8 10 ^3/uL Basophils # (Auto) 0 0-0.2 10 ^3/uL Nucleated Red Blood Cells 0.1 % Sodium Level 141 136-145 mmol/L Potassium Level 4.3 3.5-5.1 mmol/L Chloride Level 108 H 98-107 mmol/L Carbon Dioxide Level 26 20-31 mmol/L Anion Gap 7 5-15 Blood Urea Nitrogen 17 9-23 mg/dL Creatinine 0.88 0.550-1.02 mg/dL Glomerular Filtration Rate Calc 72 >90 mL/min BUN/Creatinine Ratio 19.3 10.0-20.0 Serum Glucose 146 H 74-106 mg/dL Calcium Level 9.6 8.7-10.4 mg/dL Total Bilirubin 0.4 0.2-1.0 mg/dL Aspartate Amino Transferase (AST) 14 <34 U/L Alanine Aminotransferase (ALT) < 9 7-40 U/L Alkaline Phosphatase 87 46-116 U/L Total Protein 6.7 5.7-8.2 g/dL Albumin 4.0 3.2-4.8 g/dL Troponin I High Sensitivity 4 </=34 ng/L Urine Color Colorless Yellow Urine Clarity Clear Clear Urine pH 6.5 5.0-9.0 Urine Specific [place] 1.004 1.001-1.035 Urine Protein Trace H Negative Urine Ketones Negative Negative Urine Blood Negative Negative /uL Urine Nitrite Negative Negative Urine Bilirubin Negative Negative Urine Urobilinogen Normal Negative mg/dL Urine Leukocyte Esterase Trace Negative /uL Urine RBC 1 0 - 4 /hpf Urine Microscopic WBC 9 H 0-5 /HPF Urine Squamous Epithelial Cells None seen <5 /hpf Urine Bacteria Few H None Seen /hpf Urine Glucose Normal Normal mg/dL Test 08/17/24 20:10 Range/Units D-Dimer, Quantitative 0.20 0.0-0.49 mg/L FEU B-Type Natriuretic Peptide 89.81 0-100 pg/mL Assessment Hypertensive urgency. Left bundle branch block. History of Takotsubo cardiomyopathy. Diabetes. Sinus bradycardia. Plan/Recommendation I agree with your ongoing assessment and care of plan. Patient has been seen by Juanjose Ferrera NP on my behalf, him and I discussed the plan with the patient. Continue telemetry monitoring. Continue GDMT due for previously diagnosed Takotsubo Cardiomyopathy in 2022. Negative coronary angiogram at that time. Previously noted LBBB at that time as well. Check ECHO this admission. Metoprolol decreased to 12.5 mg twice daily due to bradycardia. Valsartan increased to 80 mg daily. Amlodipine discontinued due to previous significant BLE edema on CCB. Continue to titrate Valsartan as tolerated may add hydralazine PO if needed. Aspirin, Lipitor. IV Hydralazine for SBP >150. Morphine for pain management. Additional plan as per the hospital course. Plan discussed with: Patient NYHA Physical activity limitations: Class2(Slight)fatigue,sob Date of Service: Aug 18, 2024 Billing Provider: SUSIE MURRAY MD Cardiology Common Codes: [id number] INP/OBS CARE (High) Cardiology Consultation Codes: [id number] CONSULT <45MIN SUSIE MURRAY MD Aug 18, 2024 14:48
[2024-08-18 16:28] VITALS: PULSE 52; RESP 17; O2SAT 100
[2024-08-18] MEDS ORDERED: LOSA-535 PO (16:37)
[2024-08-18] MEDS ORDERED: METF-371 PO (16:37)
[2024-08-18 16:46] VITALS: BP 145/74; PULSE 52; RESP 17; TEMP 97.7; O2SAT 100
[2024-08-18 20:00] VITALS: PULSE 57; RESP 16
[2024-08-18 20:52] VITALS: BP 140/70; PULSE 57; RESP 18; TEMP 98.1; O2SAT 96
[2024-08-18] MEDS ORDERED: ATOR40TA52 PO (21:04)
[2024-08-18] MEDS ORDERED: MET50T PO (21:04)
[2024-08-18] MEDS ORDERED: ASPI81CH59 PO (21:05)
[2024-08-18] MEDS ORDERED: METF-489 PO (21:07)
[2024-08-18] MEDS: ATORVASTATIN 20 MG TAB PO SCH (22:06)
--- NOTE | 2024-08-18 23:34 | DVHSR ---
APPROVED REPORT EXAM: Two-dimensional and M-mode echocardiogram with Doppler and color Doppler. Blood Pressure: 128/45 mmHg INDICATION HX Cardiomyopathy RISK FACTORS Height: 5' 5", Weight: 148 DIMENSIONS LVDd4.2 (3.8-5.7cm)LA (2D)3.7 (1.9-4.0cm)Aortic Root2.9 (2.0-3.7cm) LVDs3.4 (2.5-4.0cm)LA (MM) (1.9-4.0cm)Aortic Cusp Exc1.5 (1.5-2.0cm) EF (%) 50.0 (55-70%)Rt. Atrium4.0 (1.9-4.0cm)Asc. Aorta cm IVSd0.9 (0.7-1.1cm)RV (D) (1.8-2.4cm) PWd0.9 (0.7-1.1cm) Mitral Valve MitralMitral Stenosis E wave0.90m/sMV Mean GR.mmHg A wave0.90m/sMV Peak GR.mmHg E/A ratio1.02D MVAcm2 Aortic Valve Aortic ValveAortic Stenosis V10.70m/Noman Mean GR.6mmHg V21.60m/Noman Peak GR.11mmHg LVOT Diameter2.0 (1.8-2.4cm)Doppler AVA1.37cm2 Pulmonic Valve V20.90m/s Tricuspid Valve TR Velocity2.10m/s [id number] Conclusion LV EF IS 65% NORMAL VALVES NO EFFUSION NORMAL RV FUNCTION NORMAL RVSP
[2024-08-19 01:00] VITALS: BP 142/74; PULSE 51; RESP 18; TEMP 97.9; O2SAT 99
[2024-08-19 05:00] VITALS: BP 164/74; PULSE 54; RESP 16; TEMP 97.4; O2SAT 99
[2024-08-19] MEDS: hydrALAZINE HCL 20 MG/ML VL IV PRN (07:02)
[2024-08-19 07:30] LABS: Basophils # (auto) 0 10 ^3/uL (0-0.2); Eosinophils # (auto) 0.2 10 ^3/uL (0-0.8); Eosinophils % (auto) 5.6 % (0.0-7.0); Hematocrit 36.3 % (36.0-46.0); Hemoglobin 12.2 g/dL (12.2-16.2); Lymphocytes # (auto) 1.5 10 ^3/uL (0.4-5.4); Lymphocytes % (auto) 34.4 % (10.0-50.0); Mean Corpuscular Hemoglobin 29.2 pg (28.0-32.0); Mean Corpuscular Hgb Conc. 33.6 g/dL (32.0-36.0); Mean Corpuscular Volume 87.1 fL (80.0-100.0); Monocytes # (auto) 0.4 10 ^3/uL (0-1.3); Monocytes % (auto) 9.7 % (0.0-12.0); Neutrophils # (auto) 2.2 10 ^3/uL (1.6-8.6); Neutrophils % (auto) 49.3 % (37.0-80.0); Platelet Count (auto) 194 10^3/uL (140-450); Red Blood Cells 4.17 10^6/uL (4.0-5.20); Red Cell Distribution Width 16.3 % (11.8-14.3); White Blood Cell 4.4 10^3/uL (4.4-10.8)
[2024-08-19 07:48] LABS: Alanine Aminotransferase 13 U/L (7-40); Albumin 4.2 g/dL (3.2-4.8); Alkaline Phosphatase 92 U/L (46-116); Anion Gap 9 (5-15); Aspartate Aminotransferase 19 U/L (<34); BUN/Creatinine Ratio 16.7 (10.0-20.0); Blood Urea Nitrogen 15 mg/dL (9-23); Calcium 9.8 mg/dL (8.7-10.4); Carbon Dioxide 24 mmol/L (20-31); Potassium 4.7 mmol/L (3.5-5.1); Sodium 143 mmol/L (136-145); Total Protein 7.1 g/dL (5.7-8.2)
[2024-08-19 07:49] LABS: Bilirubin, Total 0.6 mg/dL (0.2-1.0)
[2024-08-19 07:55] VITALS: PULSE 58; RESP 15
[2024-08-19 08:04] LABS: Chloride 110 mmol/L (98-107); Glucose 121 mg/dL (74-106)
[2024-08-19 09:00] VITALS: BP 148/72; PULSE 59; RESP 15; TEMP 98; O2SAT 97
[2024-08-19] MEDS: HYDROcodone-ACET 5/325MG TAB PO PRN (09:15)
[2024-08-19] MEDS: VALSARTAN 80 MG TAB PO SCH (09:16)
[2024-08-19] MEDS ORDERED: VALSARTAN 80 MG TAB PO SCH (10:00)
[2024-08-19] MEDS ORDERED: amLODIPine BESYLATE 5 MG TAB PO SCH (10:00)
--- NOTE | 2024-08-19 11:24 | DVHPN2 ---
Consult Progress Note Subjective Patient reports: Feels better Review of Systems: CVS:Normal (Denies chest pain, palpitation, shortness of breath) Objective vital signs Vital Sign Date Time Temp Pulse Resp B/P (MAP) Pulse Ox O2 Delivery O2 Flow Rate FiO2 08/19/24 09:17 63 153/55 08/19/24 09:00 98.0 15 97 98.0 08/19/24 07:55 Room Air* 0 21 Total Intake and Output 08/18/24 08/18/24 08/19/24 15:00 23:00 07:00 Intake Total 0 ml 300 ml Balance 0 ml 300 ml medications Current Medications Medications Dose Ordered Sig/Jackie Route Start Time Stop Time Status Last Admin Dose Admin Aspirin 81 mg DAILY PO 08/18/24 10:00 08/19/24 09:16 81 MG Atorvastatin Calcium 40 mg HS PO 08/18/24 22:00 08/18/24 22:06 40 MG Hydralazine HCl 10 mg Q6HP PRN IV 08/18/24 00:15 08/19/24 07:02 10 MG Diagnostic Test (Pha) 1 strip ACHS 08/18/24 07:00 08/19/24 05:56 1 STRIP Insulin Human Regular HS SC 08/18/24 22:00 08/18/24 21:56 2 UNITS Insulin Human Regular AC SC 08/18/24 07:00 08/19/24 05:55 2 UNITS Dextrose 50 ml UD PRN IV 08/18/24 00:15 Sodium Chloride 10 ml Q8HR IV 08/18/24 06:00 08/19/24 05:55 10 ML Acetaminophen/ Hydrocodone Bitart 1 tab Q4HP PRN PO 08/18/24 00:15 08/19/24 09:15 1 TAB Ondansetron HCl 4 mg Q4HP PRN IV 08/18/24 00:15 Docusate Sodium 100 mg BIDPRN PRN PO 08/18/24 00:15 Acetaminophen 650 mg Q6HP PRN PO 08/18/24 00:15 Nitroglycerin 0.4 mg Q5MINP PRN SL 08/18/24 02:30 Morphine Sulfate 2 mg Q30M PRN IV 08/18/24 02:30 Metoprolol Tartrate 12.5 mg BID PO 08/18/24 22:00 08/19/24 09:17 12.5 MG Valsartan 160 mg DAILY PO 08/19/24 10:00 08/19/24 09:16 160 MG Examination: CVS:Normal (Telemetry reviewed consistent with sinus rhythm at 64 beats per minute) laboratory and microbiology Laboratory Tests 08/19/24 06:40 Test 08/19/24 06:40 Range/Units Serum Glucose 121 H 74-106 mg/dL Problem List/Assessment/Plan Problem List/Assessment/Plan * Hypertensive urgency - denies chest pain. Troponin negative. Blood pressure better controlled. metoprolol tartrate decreased to 12.5 mg p.o. twice daily due to bradycardia, continue on valsartan increased to 160 mg p.o. daily. Amlodipine discontinued as patient states had significant bilateral lower extremity edema on calcium channel blockers and was taken off prior. * Left bundle branch block - previously known on EKG reviewed from 2022. Continue telemetry monitoring. * HX Takotsubo cardiomyopathy - continue GDMT as tolerated, metoprolol decreased to 12.5 mg p.o. twice daily due to bradycardia. Continue valsartan increased to 80 mg p.o. daily. Echo now with normal EF 65%, no significant valvular structural abnormalities. * Diabetes - management per primary team. * Sinus Bradycardia - metoprolol decreased to 12.5 mg p.o. twice daily. Continue telemetry monitoring. Heart rate stable. Case Discussed with Dr Wilkerson. Continue GDMT due for previously diagnosed Takotsubo Cardiomyopathy in 2022. Negative coronary angiogram at that time. Previously noted LBBB at that time as well. Check ECHO this admission. Metoprolol decreased to 12.5 mg twice daily due to bradycardia. Valsartan increased to 160 mg daily. Amlodipine discontinued due to previous significant BLE edema on CCB. Continue to titrate Valsartan as tolerated may add hydralazine PO if needed. Blood pressure better controlled, patient denies any active overnight cardiac symptoms. Continue current regimen DC. Echo with normal EF, no significant valvular structural abnormalities. Patient is stable for discharge from cardiology standpoint with outpatient follow up. This medical document was created using an electronic medical record system with voice recognition software and computerized dictation system. Although this document has been carefully reviewed, there might still be some phonetic and typographical errors. Occasional wrong-word or ``sound-alike substitutions may have occurred due to the inherent limitations of voice recognition software. These areas are purely typographical due to imperfections of the software programs and do not reflect any compromise in the patient's medical care. Please read the chart carefully and recognize, using context, where these substitutions have occurred. Thank you for allowing me to participate in the management of this patient. The treatment plan was discussed with and agreed upon by patient/family including requesting consultants and ordering of imaging/procedures. Plan discussed with: Patient Date of Service: Aug 19, 2024 Billing Provider: ARCADIO BURK Common Visit Codes: [id number] INP/OBS CARE(HIGH) ARCADIO BURK Aug 19, 2024 11:24
[2024-08-19 13:00] VITALS: BP 160/77; PULSE 57; RESP 16; TEMP 98.2; O2SAT 96
[2024-08-19] MEDS ORDERED: MET25T PO (14:19)
[2024-08-19] MEDS ORDERED: VALS1TAB57 PO (14:19)
--- NOTE | 2024-08-19 14:24 | DVHDS2 ---
Discharge Summary Date of Admission Aug 18, 2024 at 02:16 Date of Discharge: Aug 19, 2024 Labs/Diagnostic Data: Laboratory Results Test 08/19/24 11:45 08/19/24 06:40 08/18/24 05:05 08/17/24 21:23 POC Glucose 141 mg/dl (70-106) White Blood Count 4.4 10^3/uL (4.4-10.8) Red Blood Count 4.17 10^6/uL (4.0-5.20) Hemoglobin 12.2 g/dL (12.2-16.2) Hematocrit 36.3 % (36.0-46.0) Mean Corpuscular Volume 87.1 fL (80.0-100.0) Mean Corpuscular Hemoglobin 29.2 pg (28.0-32.0) Mean Corpuscular Hemoglobin Concent 33.6 g/dL (32.0-36.0) Red Cell Distribution Width 16.3 % (11.8-14.3) Platelet Count 194 10^3/uL (140-450) Mean Platelet Volume 9.1 fL (6.9-10.8) Neutrophils (%) (Auto) 49.3 % (37.0-80.0) Lymphocytes (%) (Auto) 34.4 % (10.0-50.0) Monocytes (%) (Auto) 9.7 % (0.0-12.0) Eosinophils (%) (Auto) 5.6 % (0.0-7.0) Basophils (%) (Auto) 1.0 % (0.0-2.0) Neutrophils # (Auto) 2.2 10 ^3/uL (1.6-8.6) Lymphocytes # (Auto) 1.5 10 ^3/uL (0.4-5.4) Monocytes # (Auto) 0.4 10 ^3/uL (0-1.3) Eosinophils # (Auto) 0.2 10 ^3/uL (0-0.8) Basophils # (Auto) 0 10 ^3/uL (0-0.2) Nucleated Red Blood Cells 0.0 % Sodium Level 143 mmol/L (136-145) Potassium Level 4.7 mmol/L (3.5-5.1) Chloride Level 110 mmol/L (98-107) Carbon Dioxide Level 24 mmol/L (20-31) Anion Gap 9 (5-15) Blood Urea Nitrogen 15 mg/dL (9-23) Creatinine 0.90 mg/dL (0.550-1.02) Glomerular Filtration Rate Calc 71 mL/min (>90) BUN/Creatinine Ratio 16.7 (10.0-20.0) Serum Glucose 121 mg/dL (74-106) Calcium Level 9.8 mg/dL (8.7-10.4) Total Bilirubin 0.6 mg/dL (0.2-1.0) Aspartate Amino Transferase (AST) 19 U/L (<34) Alanine Aminotransferase (ALT) 13 U/L (7-40) Alkaline Phosphatase 92 U/L (46-116) Total Protein 7.1 g/dL (5.7-8.2) Albumin 4.2 g/dL (3.2-4.8) Thyroid Stimulating Hormone (TSH) 1.38 uIU/mL (0.55-4.78) Troponin I High Sensitivity 4 ng/L (</=34) Test 08/17/24 21:03 08/17/24 20:10 Urine Color Colorless (Yellow) Urine Clarity Clear (Clear) Urine pH 6.5 (5.0-9.0) Urine Specific [place] 1.004 (1.001-1.035) Urine Protein Trace (Negative) Urine Ketones Negative (Negative) Urine Blood Negative /uL (Negative) Urine Nitrite Negative (Negative) Urine Bilirubin Negative (Negative) Urine Urobilinogen Normal mg/dL (Negative) Urine Leukocyte Esterase Trace /uL (Negative) Urine RBC 1 /hpf (0 - 4) Urine Microscopic WBC 9 /HPF (0-5) Urine Squamous Epithelial Cells None seen /hpf (<5) Urine Bacteria Few /hpf (None Seen) Urine Glucose Normal mg/dL (Normal) D-Dimer, Quantitative 0.20 mg/L FEU (0.0-0.49) B-Type Natriuretic Peptide 89.81 pg/mL (0-100) Other Laboratory Tests 08/19/24 06:40 Brief Hx & Hospital Course: 64-year-old female with a known history of hypertension presented to the hospital chest pain palpitations and uncontrolled blood pressure found to have hypertensive urgency. Patient also has a abnormal EKG wishes old left bundle branch block. Patient's medications were adjusted because of sinus bradycardia. Cardiology was consulted patient is currently cleared to be discharged. Patient denies any urinary symptoms and she has a asymptomatic bacteriuria. Patient is being discharged under stable condition with close follow up as an outpatient with the PCP and Cardiology in 1-2 weeks. Condition at Discharge: Stable Final Diagnosis/Problems List 64-year-old female with a known history of hypertension presented to the hospital chest pain palpitations and uncontrolled blood pressure found to have 1. Chest pain ruled out acute PR 2. Hypertensive urgency, resolved 3. Abnormal EKG/left bundle-branch block, 4. Asymptomatic bacteriuria Discharge Disposition: Home SNF Discharge Will this Physician continue t: No Discharge Instruct/Medications Diet: Cardiac 2g Na,low cholest Activity: No Restrictions, As Tolerated Follow Up/Referral: Follow up with the PCP in one week Follow up with the Cardiology in one week Medications: Diovan and metoprolol tartrate as prescribed. Discharge Statement: "Patient was advised to return to the ER or call 911 if any headaches, dizziness, shortness of breath, chest pain, abdominal pain, bleeding, fevers, or worsening of medical condition. Patient was counseled about treatment plan, medications, possible side effects, patientverbalized understanding. All questions were answered to the best of my ability. This discharge took greater then 30 minutes in planning, reviewing documentation, counseling the patient, and discussing with other team members." ASSESSMENT ASSESSMENT Assessment 64-year-old female with a known history of hypertension presented to the hospital chest pain palpitations and uncontrolled blood pressure found to have 1. Chest pain ruled out acute PR 2. Hypertensive urgency, resolved 3. Abnormal EKG/left bundle-branch block, 4. Asymptomatic bacteriuria Date of Service: Aug 19, 2024 Billing Provider: MEENAKSHI WELLINGTON MD Common Visit Codes: 31189-AYJ/OBS DISCH DAY >30min MEENAKSHI WELLINGTON MD Aug 19, 2024 14:24
[2024-08-19 15:04] VITALS: BP 148/52; PULSE 61; RESP 20; TEMP 98.2; O2SAT 96
--- NOTE | 2024-08-19 22:42 | DVHPN2 ---
Consult Progress Note Subjective Patient reports: Feels better Review of Systems: CVS:Normal Other Systems: Patient was seen and evaluated in follow up. Blood pressure better controlled, patient denies any active overnight cardiac symptoms. Echo with normal EF, no significant valvular structural abnormalities. Patient is stable for discharge from cardiology standpoint with outpatient follow up. stable for discharge. Telemetry reviewed. Objective vital signs Vital Sign Date Time Temp Pulse Resp B/P (MAP) Pulse Ox O2 Delivery O2 Flow Rate FiO2 08/19/24 15:04 98.2 61 20 96 08/19/24 13:00 160/77 (104) 08/19/24 07:55 Room Air* 0 21 Total Intake and Output 08/18/24 08/18/24 08/19/24 15:00 23:00 07:00 Intake Total 0 ml 300 ml Balance 0 ml 300 ml Examination: GENERAL:Normal, HEENT:Normal, NECK:Normal, LUNGS:Normal, CVS:Normal, ABDOMEN:Normal, MSK:Normal, SKIN:Normal laboratory and microbiology Laboratory Tests 08/19/24 06:40 Test 08/19/24 06:40 Range/Units Serum Glucose 121 H 74-106 mg/dL Problem List/Assessment/Plan Problem List/Assessment/Plan Assessment Hypertensive urgency. Left bundle branch block. History of Takotsubo cardiomyopathy. Diabetes. Sinus bradycardia. Plan/Recommendation I agree with your ongoing assessment and care of plan. Patient has been seen by Juanjose Ferrera NP on my behalf, him and I discussed the plan with the patient. Continue GDMT due for previously diagnosed Takotsubo Cardiomyopathy in 2022. Negative coronary angiogram at that time. Previously noted LBBB at that time as well. Metoprolol decreased to 12.5 mg twice daily due to bradycardia. Valsartan increased to 160 mg daily. Amlodipine discontinued due to previous significant BLE edema on CCB. Additional plan as per the hospital course. Plan discussed with: Patient Date of Service: Aug 19, 2024 Billing Provider: SUSIE MURRAY MD Cardiology Common Codes: [id number] INP/OBS CARE (High) SUSIE MURRAY MD Aug 19, 2024 17:44
== END 2024-08-19 16:05 | disposition home or self-care (01) | DRG 199 ==
LOC: EDBD 19:54 → ER 19:54 → OVERFLOW 08-18 02:16 → TELE-WESTW 08-18 15:57
PROVIDERS: ADMIT Nurse Practitioner Family; ATTEND Internal Medicine
DX: I16.0 Hypertensive urgency (principal); E11.9 Type 2 diabetes mellitus without complications; I44.7 Left bundle-branch block, unspecified; R00.1 Bradycardia, unspecified; R07.89 Other chest pain; E78.5 Hyperlipidemia, unspecified; I10 Essential (primary) hypertension; N39.0 Urinary tract infection, site not specified
CPT/HCPCS: 36415; 71045; 80053; 81001; 82962; 83880; 84443; 84484; 85025; 85379; 93005; 93306; G0378; J1815